=== PATIENT | female | born 1960 | race Asian ===

== ENCOUNTER → 2017-05-10 | Outpatient (CLI) | payer OTHER | END | disposition home or self-care (01) | LOC: CFH 16:10 | PROVIDERS: ATTEND Internal Medicine | DX: R05 Cough (principal) | CPT/HCPCS: 71046 ==

== ENCOUNTER → 2017-10-15 | Outpatient (CLI) | payer OTHER | END | disposition home or self-care (01) | LOC: CFH 14:25 | PROVIDERS: ATTEND Internal Medicine | DX: Z12.31 Encounter for screening mammogram for malignant neoplasm of breast (principal) | CPT/HCPCS: 77067 ==

== ENCOUNTER 2018-02-24 18:21 | Emergency (ER) | payer OTHER ==
[~2018-02-24] VITALS: Ht 157.5 cm; Wt 59.1 kg
[2018-02-24 18:25] VITALS: BP 167/76
== END 2018-02-24 20:07 | disposition other institution (70) ==
LOC: ED 19:00
DX: B02.9 Zoster without complications (principal); R51 Headache; I10 Essential (primary) hypertension
CPT/HCPCS: 99283

== ENCOUNTER → 2018-10-16 | Outpatient (CLI) | payer BC | END | disposition home or self-care (01) | LOC: CFH 13:33 | PROVIDERS: ATTEND Internal Medicine | DX: Z12.31 Encounter for screening mammogram for malignant neoplasm of breast (principal) | CPT/HCPCS: 77063; 77067 ==

== ENCOUNTER → 2019-10-22 | Outpatient (CLI) | payer BC, OTHER | END | disposition home or self-care (01) | LOC: CFH 13:58 | PROVIDERS: ATTEND Internal Medicine | DX: Z12.31 Encounter for screening mammogram for malignant neoplasm of breast (principal); N63.20 Unspecified lump in the left breast, unspecified quadrant; N63.10 Unspecified lump in the right breast, unspecified quadrant | CPT/HCPCS: 77063; 77067 ==

== ENCOUNTER 2020-10-22 15:18 | Outpatient (CLI) | payer BC | END 2020-10-22 23:59 | disposition home or self-care (01) | LOC: CFH 15:18 | PROVIDERS: ATTEND Internal Medicine | DX: Z12.31 Encounter for screening mammogram for malignant neoplasm of breast (principal) | CPT/HCPCS: 77063; 77067 ==